=== PATIENT | male | born 1980 | race Two or more races ===

== ENCOUNTER → 2017-11-19 | Emergency (ER) | payer OTHER ==
[~2017-11-19] VITALS: Ht 193 cm; Wt 100.7 kg
[~2017-11-19] MED LIST: MOTRIN800 MG PO; TAMS0.4C PO; TORADOL15 MG IM
== END | disposition left against medical advice (07) ==
LOC: ER 17:08
DX: Z53.20 Procedure and treatment not carried out because of patient's decision for unspecified reasons (principal)

== ENCOUNTER 2018-01-01 08:42 | Emergency (ER) | payer OTHER ==
[~2018-01-01] VITALS: Ht 193 cm; Wt 100.7 kg
[2018-01-01] MEDS ORDERED: DICLOFENAC SODI50 MG PO (12:23)
== END 2018-01-01 12:41 | disposition home or self-care (01) ==
LOC: ER 08:42
DX: M62.830 Muscle spasm of back (principal)

== ENCOUNTER 2018-04-17 17:35 | Emergency (ER) | payer OTHER ==
[~2018-04-17] VITALS: Ht 193 cm; Wt 110.2 kg
[~2018-04-17 17:35] MED LIST changes: +DICLOFENAC SODI50 MG PO
== END 2018-04-17 21:22 | disposition home or self-care (01) ==
LOC: ER 17:35
DX: M62.830 Muscle spasm of back (principal); M54.2 Cervicalgia

== ENCOUNTER → 2018-09-19 | Emergency (ER) | payer OTHER ==
[~2018-09-19] VITALS: Ht 193 cm; Wt 107.5 kg
== END | disposition left against medical advice (07) ==
LOC: ER 23:37
DX: Z53.20 Procedure and treatment not carried out because of patient's decision for unspecified reasons (principal)

== ENCOUNTER 2019-07-30 14:05 | Emergency (ER) | payer OTHER ==
[~2019-07-30] VITALS: Ht 193 cm; Wt 118.4 kg
== END 2019-07-30 14:57 | disposition home or self-care (01) ==
LOC: ER 14:05
DX: M62.830 Muscle spasm of back (principal); M54.89 Other dorsalgia

== ENCOUNTER → 2019-08-21 | Emergency (ER) | payer OTHER ==
[~2019-08-21] VITALS: Ht 193 cm; Wt 118.4 kg
== END | disposition left against medical advice (07) ==
LOC: ER 21:18
DX: Z53.20 Procedure and treatment not carried out because of patient's decision for unspecified reasons (principal)

== ENCOUNTER → 2021-03-14 | Emergency (ER) | payer OTHER ==
[~2021-03-14] VITALS: Ht 185.4 cm; Wt 99.8 kg
[~2021-03-14] MED LIST changes: +LIPITOR40 MG; +PLAVIX75 MG
== END | disposition home or self-care (01) ==
LOC: ER 03:34
DX: R07.89 Other chest pain (principal); M94.0 Chondrocostal junction syndrome [Tietze]